=== PATIENT | female | born 1975 | race African-American/Black ===

== ENCOUNTER 2019-04-27 10:30 | Emergency (ER) | payer OTHER ==
[~2019-04-27] VITALS: Ht 167.6 cm; Wt 80.7 kg
[2019-04-27] MEDS ORDERED: NORVASC2.5 MG PO (10:34)
[2019-04-27] MEDS ORDERED: HYDROCHLOROTH12.5 M1 PO (10:34)
[2019-04-27 12:47] VITALS: BP 136/87
== END 2019-04-27 12:47 | disposition home or self-care (01) ==
LOC: ER 10:30
DX: T16.2XXA Foreign body in left ear, initial encounter (principal); I10 Essential (primary) hypertension; W22.8XXA Striking against or struck by other objects, initial encounter; Y93.89 Activity, other specified; Y92.89 Other specified places as the place of occurrence of the external cause; Y99.8 Other external cause status